=== PATIENT | male | born 1970 | race Caucasian/White ===

== ENCOUNTER 2023-12-26 09:32 | Inpatient (IN) | payer OTHER ==
[2023-12-26] MEDS: Ondansetron 4 MG/2 ML SDV IVPUSH ONE (10:30)
[2023-12-26] MEDS: HYDROmorphone 1 MG/ML Syringe IVPUSH ONE (10:30)
[2023-12-26] MEDS: Sodium Chloride 0.9% 1,000 ML IV ONE ×3 (10:31→14:57)
[2023-12-26] MEDS: Sodium Chloride 0.9% 10 ML Syringe FLUSH PRN (10:32)
[2023-12-26 10:41] LABS: HEMATOCRIT 40.3 % (42.0-52.0); HEMOGLOBIN 11.1 gm/dl (14.0-18.0); MEAN CORPUSCULAR HEMOGLOBIN 22.1 pg (28.0-32.0); MEAN CORPUSCULAR HGB CONC 27.5 g/dl (32.0-36.0); MEAN CORPUSCULAR VOLUME 80.1 fl (83.0-99.0); MEAN PLATELET VOLUME 9.4 fl (9.4-12.4); PLATELET COUNT,PLT 485 K/mm3 (150-400); RED BLOOD CELL COUNT 5.03 M/mm3 (4.52-5.90); WHITE BLOOD CELL COUNT,WBC 12.72 K/mm3 (3.9-11.3)
[2023-12-26 11:07] LABS: INR 1.13
[2023-12-26 11:09] LABS: CORONAVIRUS COVID-19 NAA POSITIVE (NEGATIVE); INFLUENZA A NAA NEGATIVE (NEGATIVE); RESPIRATORY SYNCYTIAL VIR NAA NEGATIVE (NEGATIVE)
[2023-12-26 11:09] LABS: A/G RATIO 0.5 (1-2); ALBUMIN 3.1 g/dl (3.4-5.0); ANION GAP 35.3 (5-15); BUN/CREATININE RATIO 18.8 (14-18); C-REACTIVE PROTEIN 21.21 mg/dL (<0.30); CALCIUM 11.1 mg/dL (8.5-10.1); CREATININE 1.7 mg/dL (0.7-1.3); EST CRCL DRUG DOSING (CG) 37.04 mL/min; POTASSIUM,K 5.3 mEq/L (3.5-5.1); PROTEIN TOTAL,TP 9.1 g/dl (6.4-8.2)
[2023-12-26 11:13] LABS: LACTIC ACID 3.4 mmol/L (0.4-2.0)
[2023-12-26 11:28] LABS: BAND PERCENT MAN 0 % (0-10); BASOPHILS PERCENT MAN 0 (0.2-1.2); EOSINOPHILS PERCENT MAN 4 % (0.8-7.0); LYMPHOCYTES % ATYPICAL MANUAL 0 %; LYMPHOCYTES PERCENT MAN 5 % (20-40); MONOCYTES PERCENT MAN 1 % (2-10)
[2023-12-26 11:29] LABS: BURR CELLS 2+ MODERATE; PLATELET COUNT ESTIMATE INCREASED; TEARDROP CELLS 1+ SLIGHT
[2023-12-26 11:31] LABS: BASE EXCESS ARTERIAL -17.9 (-2-2.0); BICARBONATE,ARTERIAL 9.5 meq/L (22.0-26.0); O2 SATURATION ARTERIAL 95.9 % (96.0-97.0); PCO2 ARTERIAL 28.6 mmHg (35.0-45.0)
[2023-12-26] MEDS ORDERED: Insulin Regular in 0.9 % NACL 100 ML IV SCH (11:45)
[2023-12-26 12:24] LABS: HEMOGLOBIN A1C 7.4 %
[2023-12-26 12:26] LABS: APPEARANCE,URINE CLEAR (Clear); BILIRUBIN,URINE NEGATIVE (Negative); COLOR,URINE LIGHT YELLOW (Yellow); GLUCOSE,URINE 2+ (Negative); KETONES,URINE 4+ (Negative); LEUKOCYTE ESTERASE,URINE NEGATIVE (Negative); NITRITE,URINE NEGATIVE (Negative); OCCULT BLOOD,URINE 2+ (Negative); PH,URINE 5.5 (5.0-8.0); PROTEIN,URINE 1+ (Negative); UROBILINOGEN,URINE 0.2 (0.2-1.0)
[2023-12-26 12:37] LABS: AMORPHOUS SEDIMENT,URINE MODERATE /hpf (NOT SEEN); BACTERIA,URINE FEW /hpf (FEW); MUCUS,URINE FEW /hpf (FEW); RBC,URINE 0-5 /hpf (0-5); WBC,URINE 0-5 /hpf (0-5)
[2023-12-26] MEDS ORDERED: Docusate Sodium 100 MG Cap PO PRN (12:46)
[2023-12-26] MEDS ORDERED: Acetaminophen 325 MG Tab PO PRN (12:46)
[2023-12-26] MEDS: Insulin Regular in 0.9 % NACL 100 ML IV SCH ×2 (12:59→15:28)
[2023-12-26] MEDS ORDERED: Sodium Chloride 0.9% 1,000 ML IV SCH (13:00)
[2023-12-26] MEDS: Piperacillin/Tazobactam 4.5 GM in Sodium Chloride 0.9% 100 ML IV ONE (14:09)
[2023-12-26] MEDS: Heparin Sodium 5,000 Units/ML Vial SUBCUT SCH (14:09)
[2023-12-26 14:43] LABS: ANION GAP 33.8 (5-15); BUN/CREATININE RATIO 21.3 (14-18); CALCIUM 9.7 mg/dL (8.5-10.1); CREATININE 1.5 mg/dL (0.7-1.3); EST CRCL DRUG DOSING (CG) 41.98 mL/min
[2023-12-26 14:44] LABS: POTASSIUM,K 5.8 mEq/L (3.5-5.1)
[2023-12-26] MEDS: REMDESIVIR 200 MG in Sodium Chloride 0.9% 250 ML IV ONE (15:02)
[2023-12-26] MEDS: Sodium Chloride 0.9% 1,000 ML IV SCH (16:17)
[2023-12-26] MEDS: Sodium Chloride 0.9% 0 ML ONE (18:56)
[2023-12-26 19:01] LABS: BUN/CREATININE RATIO 18.7 (14-18); CALCIUM 9.2 mg/dL (8.5-10.1); CREATININE 1.5 mg/dL (0.7-1.3); EST CRCL DRUG DOSING (CG) 41.98 mL/min
[2023-12-26] MEDS: Potassium Chloride 20 MEQ Tab.ER PO ONE (20:01)
[2023-12-26] MEDS: Acetaminophen/HYDROcodone 325-5 MG Tab PO PRN (20:01)
[2023-12-26] MEDS: Potassium Chloride 10 MEQ in Premix Bag 1 BAG IV SCH (20:02)
[2023-12-26] MEDS: Ondansetron 4 MG/2 ML SDV IV PRN (20:03)
[2023-12-26] MEDS: Piperacillin/Tazobactam 4.5 GM in Sodium Chloride 0.9% 100 ML IV SCH (20:04)
[2023-12-26 22:23] LABS: ANION GAP 14.2 (5-15); BUN/CREATININE RATIO 18.5 (14-18); CREATININE 1.3 mg/dL (0.7-1.3); EST CRCL DRUG DOSING (CG) 48.44 mL/min; POTASSIUM,K 4.2 mEq/L (3.5-5.1)
[2023-12-26] MEDS: Insulin Glargine,Human Rec. Analog 100 Units/ML 3 ML Pen SUBCUT ONE (23:03)
[2023-12-27 02:36] LABS: ANION GAP 13.6 (5-15); BUN/CREATININE RATIO 18.3 (14-18); CALCIUM 9.1 mg/dL (8.5-10.1); CREATININE 1.2 mg/dL (0.7-1.3); EST CRCL DRUG DOSING (CG) 52.48 mL/min; POTASSIUM,K 4.6 mEq/L (3.5-5.1)
[2023-12-27 04:58] LABS: BASOPHILS PERCENT AUTO 0.2 % (0.0-1.0); EOSINOPHILS ABSOLUTE AUTO 0.1 K/mm3 (0.0-0.4); EOSINOPHILS PERCENT AUTO 0.9 % (0.0-6.0); HEMATOCRIT 30.4 % (42.0-52.0); HEMOGLOBIN 9.1 gm/dl (14.0-18.0); IMMATURE GRAN ABSOLUTE AUTO 0.04 K/mm3 (0.00-0.05); IMMATURE GRAN PERCENT AUTO 0.3 % (0.0-0.4); LYMPHOCYTES ABSOLUTE AUTO 1.5 K/mm3 (1.0-4.8); LYMPHOCYTES PERCENT AUTO 11.5 % (24.0-44.0); MEAN CORPUSCULAR HEMOGLOBIN 22.8 pg (28.0-32.0); MEAN CORPUSCULAR HGB CONC 29.9 g/dl (32.0-36.0); MEAN PLATELET VOLUME 8.4 fl (9.4-12.4); MONOCYTES ABSOLUTE AUTO 0.5 K/mm3 (0.0-0.8); MONOCYTES PERCENT AUTO 3.7 % (0.0-8.0); NEUTROPHILS PERCENT AUTO 83.4 % (41.0-71.0); PLATELET COUNT,PLT 326 K/mm3 (150-400); WHITE BLOOD CELL COUNT,WBC 13.17 K/mm3 (3.9-11.3)
[2023-12-27 05:25] LABS: A/G RATIO 0.5 (1-2); ALBUMIN 2.2 g/dl (3.4-5.0); ANION GAP 13.4 (5-15); BILIRUBIN TOTAL 0.4 mg/dL (0.2-1.0); BUN/CREATININE RATIO 15.8 (14-18); C-REACTIVE PROTEIN 14.55 mg/dL (<0.30); CALCIUM 9.6 mg/dL (8.5-10.1); CREATININE 1.2 mg/dL (0.7-1.3); EST CRCL DRUG DOSING (CG) 56.32 mL/min; MAGNESIUM 1.9 mg/dL (1.8-2.4); PHOSPHORUS 1.7 mg/dL (2.6-4.7); POTASSIUM,K 4.4 mEq/L (3.5-5.1); PROTEIN TOTAL,TP 6.9 g/dl (6.4-8.2)
[2023-12-27] MEDS: Phosphorus #1 250 MG Tab PO ONE (06:41)
[2023-12-27] MEDS: Insulin Lispro 100 Unit/ML 3 ML KwikPen SUBCUT SCH (06:46)
[2023-12-27] MEDS: REMDESIVIR 100 MG in Sodium Chloride 0.9% 250 ML IV SCH (12:45)
[2023-12-27] MEDS: Insulin Glargine,Human Rec. Analog 100 Units/ML 3 ML Pen SUBCUT SCH (21:41)
[2023-12-28 05:37] LABS: A/G RATIO 0.4 (1-2); ALBUMIN 2.1 g/dl (3.4-5.0); ANION GAP 13.2 (5-15); BILIRUBIN TOTAL 0.8 mg/dL (0.2-1.0); CREATININE 0.8 mg/dL (0.7-1.3); EST CRCL DRUG DOSING (CG) 83.4 mL/min; MAGNESIUM 1.7 mg/dL (1.8-2.4); POTASSIUM,K 4.2 mEq/L (3.5-5.1); PROTEIN TOTAL,TP 6.9 g/dl (6.4-8.2)
[2023-12-28 05:43] LABS: BASOPHILS ABSOLUTE AUTO 0.1 K/mm3 (0.0-0.2); BASOPHILS PERCENT AUTO 0.8 % (0.0-1.0); EOSINOPHILS PERCENT AUTO 0.3 % (0.0-6.0); HEMATOCRIT 32.4 % (42.0-52.0); HEMOGLOBIN 9.6 gm/dl (14.0-18.0); IMMATURE GRAN ABSOLUTE AUTO 0.03 K/mm3 (0.00-0.05); IMMATURE GRAN PERCENT AUTO 0.3 % (0.0-0.4); LYMPHOCYTES PERCENT AUTO 10.5 % (24.0-44.0); MEAN CORPUSCULAR HEMOGLOBIN 22.9 pg (28.0-32.0); MEAN CORPUSCULAR HGB CONC 29.6 g/dl (32.0-36.0); MEAN CORPUSCULAR VOLUME 77.1 fl (83.0-99.0); MONOCYTES ABSOLUTE AUTO 0.4 K/mm3 (0.0-0.8); MONOCYTES PERCENT AUTO 4.1 % (0.0-8.0); NEUTROPHILS ABSOLUTE AUTO 7.6 K/mm3 (1.8-7.7); PLATELET COUNT,PLT 270 K/mm3 (150-400); WHITE BLOOD CELL COUNT,WBC 9.01 K/mm3 (3.9-11.3)
[2023-12-28] MEDS: Insulin Glargine,Human Rec. Analog 100 Units/ML 3 ML Pen SUBCUT SCH ×2 (08:19→21:30)
[2023-12-28] MEDS: Insulin Lispro 100 Unit/ML 3 ML KwikPen SUBCUT SCH (08:29)
[2023-12-28] MEDS: Ondansetron 4 MG Tab.DIS PO PRN (10:15)
[2023-12-28] MEDS: Nicotine 7 MG/24 Hr Patch TRDERM SCH (11:10)
[2023-12-28] MEDS: Nicotine Polacrilex 2 MG Gum CHEW PRN (11:11)
[2023-12-28] MEDS ORDERED: Insulin Lispro 100 Unit/ML 3 ML KwikPen SUBCUT SCH (11:30)
[2023-12-28] MEDS: Magnesium Sulfate/Water 2 GM in Premix Bag 1 BAG IV ONE (12:39)
[2023-12-28] MEDS: Insulin Lispro 100 Unit/ML 3 ML KwikPen SUBCUT ONE (21:32)
[2023-12-29] MEDS: Insulin Lispro 100 Unit/ML 3 ML KwikPen SUBCUT ONE (00:13)
[2023-12-29 05:01] LABS: BASOPHILS ABSOLUTE AUTO 0.1 K/mm3 (0.0-0.2); BASOPHILS PERCENT AUTO 0.8 % (0.0-1.0); EOSINOPHILS ABSOLUTE AUTO 0.1 K/mm3 (0.0-0.4); HEMATOCRIT 30.9 % (42.0-52.0); HEMOGLOBIN 9.1 gm/dl (14.0-18.0); IMMATURE GRAN ABSOLUTE AUTO 0.03 K/mm3 (0.00-0.05); IMMATURE GRAN PERCENT AUTO 0.4 % (0.0-0.4); LYMPHOCYTES ABSOLUTE AUTO 1.3 K/mm3 (1.0-4.8); LYMPHOCYTES PERCENT AUTO 16.7 % (24.0-44.0); MEAN CORPUSCULAR HEMOGLOBIN 22.2 pg (28.0-32.0); MEAN CORPUSCULAR HGB CONC 29.4 g/dl (32.0-36.0); MEAN CORPUSCULAR VOLUME 75.4 fl (83.0-99.0); MEAN PLATELET VOLUME 8.7 fl (9.4-12.4); MONOCYTES ABSOLUTE AUTO 0.5 K/mm3 (0.0-0.8); NEUTROPHILS ABSOLUTE AUTO 5.9 K/mm3 (1.8-7.7); NEUTROPHILS PERCENT AUTO 75.1 % (41.0-71.0); PLATELET COUNT,PLT 252 K/mm3 (150-400); WHITE BLOOD CELL COUNT,WBC 7.86 K/mm3 (3.9-11.3)
[2023-12-29 05:58] LABS: A/G RATIO 0.5 (1-2); ALBUMIN 2.2 g/dl (3.4-5.0); ANION GAP 12.9 (5-15); BILIRUBIN TOTAL 0.5 mg/dL (0.2-1.0); BUN/CREATININE RATIO 27.1 (14-18); CREATININE 0.7 mg/dL (0.7-1.3); EST CRCL DRUG DOSING (CG) 95.32 mL/min; POTASSIUM,K 3.9 mEq/L (3.5-5.1); PROTEIN TOTAL,TP 6.8 g/dl (6.4-8.2)
== END 2023-12-29 11:25 | disposition home or self-care (01) | DRG 637 ==
LOC: JD.ED 09:32 → JD.ICU 12:16
PROVIDERS: ADMIT Internal Medicine; ATTEND Internal Medicine
PROC: 4A033R1 Measurement of Arterial Saturation, Peripheral, Percutaneous Approach (ICD-10-PCS; principal; 2023-12-26)
PROC: XW033E5 Introduction of Remdesivir Anti-infective into Peripheral Vein, Percutaneous Approach, New Technology Group 5 (ICD-10-PCS; 2023-12-26)
DX: E13.10 Other specified diabetes mellitus with ketoacidosis without coma (principal); U07.1 COVID-19; C64.9 Malignant neoplasm of unspecified kidney, except renal pelvis; C78.7 Secondary malignant neoplasm of liver and intrahepatic bile duct; C78.02 Secondary malignant neoplasm of left lung; C78.01 Secondary malignant neoplasm of right lung; C77.2 Secondary and unspecified malignant neoplasm of intra-abdominal lymph nodes; C77.1 Secondary and unspecified malignant neoplasm of intrathoracic lymph nodes; D84.9 Immunodeficiency, unspecified; E87.20 Acidosis, unspecified; N17.9 Acute kidney failure, unspecified; R64 Cachexia; Z68.1 Body mass index [BMI] 19.9 or less, adult; F17.210 Nicotine dependence, cigarettes, uncomplicated; E86.0 Dehydration; D72.829 Elevated white blood cell count, unspecified; R79.82 Elevated C-reactive protein (CRP); E88.09 Other disorders of plasma-protein metabolism, not elsewhere classified; Z79.899 Other long term (current) drug therapy
CPT/HCPCS: 0241U; 36415; 36600; 71045; 71045-26; 80048; 80053; 81001; 82010; 82803; 82947; 83036; 83605; 83735; 83930; 84100; 84145; 85007; 85025; 85027; 85610; 86140; 86850; 86900; 86901; 87040; 96361; 96374; 96375; 97116-GP; 97161-GP; 99285; 99285-25; A9270-GY; J0248; J1170; J1644; J1815; J1815-GY; J2405; J2543; J3475; J3480; J3490; J7030; J7050

== ENCOUNTER 2024-05-17 14:02 | Emergency (ER) | payer OTHER ==
[2024-05-17 17:15] LABS: BASOPHILS ABSOLUTE AUTO 0.1 K/mm3 (0.0-0.2); BASOPHILS PERCENT AUTO 1.4 % (0.0-1.0); EOSINOPHILS ABSOLUTE AUTO 0.1 K/mm3 (0.0-0.4); EOSINOPHILS PERCENT AUTO 1.1 % (0.0-6.0); HEMATOCRIT 29.4 % (42.0-52.0); IMMATURE GRAN ABSOLUTE AUTO 0.01 K/mm3 (0.00-0.05); IMMATURE GRAN PERCENT AUTO 0.2 % (0.0-0.4); LYMPHOCYTES ABSOLUTE AUTO 0.7 K/mm3 (1.0-4.8); LYMPHOCYTES PERCENT AUTO 10.1 % (24.0-44.0); MEAN CORPUSCULAR HEMOGLOBIN 21.9 pg (28.0-32.0); MEAN CORPUSCULAR HGB CONC 27.2 g/dl (32.0-36.0); MEAN PLATELET VOLUME 9.4 fl (9.4-12.4); MONOCYTES ABSOLUTE AUTO 0.8 K/mm3 (0.0-0.8); MONOCYTES PERCENT AUTO 11.3 % (0.0-8.0); NEUTROPHILS ABSOLUTE AUTO 5.1 K/mm3 (1.8-7.7); NEUTROPHILS PERCENT AUTO 75.9 % (41.0-71.0); PLATELET COUNT,PLT 203 K/mm3 (150-400); RED BLOOD CELL COUNT 3.66 M/mm3 (4.52-5.90); WHITE BLOOD CELL COUNT,WBC 6.64 K/mm3 (3.9-11.3)
[2024-05-17 17:20] LABS: MEAN CORPUSCULAR VOLUME 80.3 fl (83.0-99.0)
[2024-05-17 17:32] LABS: APPEARANCE,URINE CLEAR (Clear); BILIRUBIN,URINE NEGATIVE (Negative); COLOR,URINE YELLOW (Yellow); GLUCOSE,URINE NEGATIVE (Negative); KETONES,URINE NEGATIVE (Negative); LEUKOCYTE ESTERASE,URINE TRACE (Negative); NITRITE,URINE NEGATIVE (Negative); OCCULT BLOOD,URINE NEGATIVE (Negative); PROTEIN,URINE 1+ (Negative); UROBILINOGEN,URINE 0.2 (0.2-1.0)
[2024-05-17 17:36] LABS: A/G RATIO 0.3 (1-2); ALBUMIN 1.6 g/dl (3.4-5.0); ANION GAP 12.2 (5-15); BILIRUBIN TOTAL 0.6 mg/dL (0.2-1.0); C-REACTIVE PROTEIN 16.68 mg/dL (<0.30); CALCIUM 9.6 mg/dL (8.5-10.1); EST CRCL DRUG DOSING (CG) 65.87 mL/min; POTASSIUM,K 4.2 mEq/L (3.5-5.1); PROTEIN TOTAL,TP 6.9 g/dl (6.4-8.2); SLIDE REVIEW ABNORMAL SMEAR
[2024-05-17 17:39] LABS: BACTERIA,URINE FEW /hpf (FEW); EPITHELIAL CELLS,URINE 0-5 /hpf (0-5); MUCUS,URINE RARE /hpf (FEW); RBC,URINE 0-5 /hpf (0-5)
[2024-05-17 17:44] LABS: LACTIC ACID 1.8 mmol/L (0.4-2.0)
[2024-05-17] MEDS: Sodium Chloride 0.9% 1,000 ML IV SCH (18:10)
[2024-05-17] MEDS: cefTRIAXone 2 GM in Sodium Chloride 0.9% 100 ML IV ONE (19:27)
[2024-05-17] MEDS: Sodium Chloride 0.9% 10 ML Syringe FLUSH PRN (19:29)
== END 2024-05-17 20:05 | disposition home or self-care (01) ==
LOC: JD.ED 14:02
DX: R50.9 Fever, unspecified (principal); N30.00 Acute cystitis without hematuria; C64.2 Malignant neoplasm of left kidney, except renal pelvis; E10.9 Type 1 diabetes mellitus without complications; F17.210 Nicotine dependence, cigarettes, uncomplicated; Z79.4 Long term (current) use of insulin; Z79.899 Other long term (current) drug therapy
CPT/HCPCS: 36415; 71045; 71045-26; 80053; 81001; 83605; 85025; 86140; 87086; 96361; 96365; 99285-25; J0696; J3490; J7030; U0002

== ENCOUNTER 2024-08-21 22:55 | Inpatient (IN) | payer OTHER ==
[2024-08-22 00:11] LABS: EOSINOPHILS PERCENT AUTO 0.2 % (0.0-6.0); HEMATOCRIT 28.9 % (42.0-52.0); HEMOGLOBIN 7.9 gm/dl (14.0-18.0); IMMATURE GRAN ABSOLUTE AUTO 0.02 K/mm3 (0.00-0.05); IMMATURE GRAN PERCENT AUTO 0.3 % (0.0-0.4); LYMPHOCYTES ABSOLUTE AUTO 0.6 K/mm3 (1.0-4.8); LYMPHOCYTES PERCENT AUTO 10.3 % (24.0-44.0); MEAN CORPUSCULAR HEMOGLOBIN 23.5 pg (28.0-32.0); MEAN CORPUSCULAR HGB CONC 27.3 g/dl (32.0-36.0); MEAN PLATELET VOLUME 9.7 fl (9.4-12.4); MONOCYTES ABSOLUTE AUTO 0.3 K/mm3 (0.0-0.8); MONOCYTES PERCENT AUTO 4.5 % (0.0-8.0); NEUTROPHILS ABSOLUTE AUTO 5.3 K/mm3 (1.8-7.7); NEUTROPHILS PERCENT AUTO 84.7 % (41.0-71.0); PLATELET COUNT,PLT 145 K/mm3 (150-400); RED BLOOD CELL COUNT 3.36 M/mm3 (4.52-5.90)
[2024-08-22 00:28] LABS: INR 1.43; PROTHROMBIN TIME 14.8 SECONDS (9.7-12.0)
[2024-08-22 00:29] LABS: PTT,PARTIAL THROMBOPLSTIN TIME 28.3 SECONDS (21.7-31.4)
[2024-08-22 00:33] LABS: APPEARANCE,URINE CLEAR (Clear); BILIRUBIN,URINE NEGATIVE (Negative); COLOR,URINE YELLOW (Yellow); GLUCOSE,URINE NEGATIVE (Negative); KETONES,URINE NEGATIVE (Negative); LEUKOCYTE ESTERASE,URINE NEGATIVE (Negative); NITRITE,URINE NEGATIVE (Negative); OCCULT BLOOD,URINE NEGATIVE (Negative); PROTEIN,URINE 1+ (Negative)
[2024-08-22 00:37] LABS: A/G RATIO 0.3 (1-2); ALANINE AMINOTRANSFERASE,ALT 16 U/L (16-63); ALBUMIN 1.6 g/dl (3.4-5.0); ALKALINE PHOSPHATASE 581 U/L (46-116); ANION GAP 11.8 (5-15); ASPARTATE AMNIOTRANSFERASE,AST 21 U/L (15-37); BILIRUBIN TOTAL 0.9 mg/dL (0.2-1.0); BLOOD UREA NITROGEN,BUN 49 mg/dL (7-18); BUN/CREATININE RATIO 54.4 (14-18); CALCIUM 11.8 mg/dL (8.5-10.1); CARBON DIOXIDE,CO2 26 mEq/L (21-32); CHLORIDE,CL 101 mEq/L (98-107); CREATININE 0.9 mg/dL (0.7-1.3); ESTIMATED GFR 101 mL/min (>60); MAGNESIUM 2.6 mg/dL (1.8-2.4); PHOSPHORUS 3.9 mg/dL (2.6-4.7); POTASSIUM,K 4.8 mEq/L (3.5-5.1); PROTEIN TOTAL,TP 6.8 g/dl (6.4-8.2); SODIUM,NA 134 mEq/L (136-145)
[2024-08-22 00:39] LABS: LACTIC ACID 1.5 mmol/L (0.4-2.0)
[2024-08-22 00:47] LABS: GLUCOSE RANDOM 44 mg/dL (70-99)
[2024-08-22] MEDS: 50% Dextrose in Water 50 ML Syringe IVPUSH ONE ×2 (00:55→05:33)
[2024-08-22] MEDS: Acetaminophen/HYDROcodone 325-5 MG Tab PO ONE (00:56)
[2024-08-22] MEDS: Sodium Chloride 0.9% 10 ML Syringe FLUSH PRN (00:56)
[2024-08-22] MEDS: Sodium Chloride 0.9% 500 ML IV ONE ×2 (00:56→03:47)
[2024-08-22 01:24] LABS: BACTERIA,URINE FEW /hpf (FEW); EPITHELIAL CELLS,URINE 0-5 /hpf (0-5); MUCUS,URINE FEW /hpf (FEW); RBC,URINE 0-5 /hpf (0-5); WBC,URINE 0-5 /hpf (0-5)
[2024-08-22 01:38] LABS: SLIDE REVIEW ABNORMAL SMEAR
[2024-08-22] MEDS: Sodium Chloride 0.9% 1,000 ML IV ONE ×2 (05:19→08:17)
[2024-08-22] MEDS ORDERED: Naloxone 0.4 MG/ML SDV IVPUSH PRN (08:12)
[2024-08-22] MEDS ORDERED: Ondansetron 4 MG/2 ML SDV IV PRN (08:12)
[2024-08-22] MEDS ORDERED: Acetaminophen 325 MG Tab PO PRN (08:12)
[2024-08-22] MEDS ORDERED: oxyCODONE 5 MG Tab PO PRN (08:12)
[2024-08-22] MEDS ORDERED: Sennosides/Docusate Sodium 50-8.6 MG Tab PO PRN (08:12)
[2024-08-22] MEDS ORDERED: Melatonin 3 MG Tab PO PRN (08:12)
[2024-08-22] MEDS ORDERED: 50% Dextrose in Water 50 ML Syringe IVPUSH PRN (08:26)
[2024-08-22] MEDS: Morphine 2 MG/ML SYRINGE IVPUSH PRN (08:30)
[2024-08-22] MEDS ORDERED: Acetaminophen/HYDROcodone 325-5 MG Tab PO PRN (08:31)
[2024-08-22] MEDS: Sodium Chloride 0.9% 1,000 ML IV SCH (10:22)
[2024-08-22] MEDS: Enoxaparin 40 MG/0.4 ML Syringe SUBCUT SCH (12:31)
[2024-08-22] MEDS: Insulin Lispro 100 Unit/ML 3 ML KwikPen SUBCUT SCH (12:39)
[2024-08-22] MEDS: fentaNYL 12 MCG/HR Transdermal Patch TOP SCH (12:39)
[2024-08-22] MEDS ORDERED: Nitroglycerin 0.4 MG Tab.SL SL PRN (13:29)
[2024-08-22] MEDS ORDERED: Meclizine 12.5 MG Tab PO PRN (13:29)
[2024-08-22] MEDS: Enoxaparin 30 MG/0.3 ML Syringe SUBCUT SCH (13:32)
[2024-08-22] MEDS ORDERED: Famotidine 20 MG/2 ML SDV IVPUSH SCH (21:00)
[2024-08-23] MEDS: Morphine 2 MG/ML SYRINGE IVPUSH PRN (11:25)
[2024-08-23] MEDS: LORazepam 2 MG/ML SDV IV PRN (12:07)
== END 2024-08-24 05:20 | disposition expired | DRG 951 ==
LOC: JD.ED 22:55 → JD.MS 08-22 06:48
PROVIDERS: ADMIT Student in an Organized Health Care Education/Training Program; ATTEND Student in an Organized Health Care Education/Training Program
DX: Z51.5 Encounter for palliative care (principal); S22.42XA Multiple fractures of ribs, left side, initial encounter for closed fracture; C78.7 Secondary malignant neoplasm of liver and intrahepatic bile duct; C64.9 Malignant neoplasm of unspecified kidney, except renal pelvis; C78.01 Secondary malignant neoplasm of right lung; C78.02 Secondary malignant neoplasm of left lung; Z68.1 Body mass index [BMI] 19.9 or less, adult; E46 Unspecified protein-calorie malnutrition; D84.9 Immunodeficiency, unspecified; R64 Cachexia; Z66 Do not resuscitate; R62.7 Adult failure to thrive; I95.9 Hypotension, unspecified; E83.52 Hypercalcemia; Z79.4 Long term (current) use of insulin; Z79.899 Other long term (current) drug therapy; D63.0 Anemia in neoplastic disease; F17.210 Nicotine dependence, cigarettes, uncomplicated; L89.151 Pressure ulcer of sacral region, stage 1; E86.0 Dehydration; E10.649 Type 1 diabetes mellitus with hypoglycemia without coma
CPT/HCPCS: 36415; 71101-26-LT; 71101-LT; 80053; 81001; 82947; 83605; 83735; 83880; 84100; 85025; 85610; 85730; 87040; 93005; 93010; 96361; 96374; 96376; 99284; 99285-25; A9270-GY; J1650; J2060; J2270; J3490; J7030